=== PATIENT | female | born 1970 | race Caucasian/White ===

== ENCOUNTER 2017-12-01 10:43 | Emergency (ER) | payer OTHER ==
[~2017-12-01] VITALS: Ht 160 cm; Wt 113.2 kg
[2017-12-01] MEDS ORDERED: LOSA50TA25 PO (10:53)
[2017-12-01] MEDS ORDERED: OMEP20 PO (10:53)
[2017-12-01] MEDS ORDERED: BUPR75 PO (10:53)
[2017-12-01] MEDS ORDERED: PredniSONE 20 MG TABLET PO ONE (12:30)
[2017-12-01] MEDS ORDERED: DiphenhydrAMINE HCL 50 MG/ML VIAL IM ONE (12:30)
[2017-12-01 12:38] VITALS: BP 140/78
== END 2017-12-01 12:39 | disposition home or self-care (01) ==
LOC: EMS 10:44
DX: L50.0 Allergic urticaria (principal); T47.1X5A Adverse effect of other antacids and anti-gastric-secretion drugs, initial encounter; F32.9 Major depressive disorder, single episode, unspecified; K21.9 Gastro-esophageal reflux disease without esophagitis; I10 Essential (primary) hypertension; Z98.51 Tubal ligation status; Z79.899 Other long term (current) drug therapy; Y92.89 Other specified places as the place of occurrence of the external cause
CPT/HCPCS: 96372; 99283; J1200; J7512